=== PATIENT | female | born 1955 | race American Indian/Alaskan Native ===

== ENCOUNTER 2020-05-26 12:00 | Outpatient (CLI) | payer OTHER ==
[2020-05-26] MEDS ORDERED: ALBUTEROL 2.5 MG/3 ML NEBU IH NR (14:00)
[2020-05-26] MEDS ORDERED: ALBUTEROL 2.5 MG/3 ML NEBU IH SCH (14:30)
== END 2020-05-26 12:01 | disposition home or self-care (01) ==
LOC: PF 12:00
PROVIDERS: ATTEND Internal Medicine
DX: J43.9 Emphysema, unspecified (principal); Z02.71 Encounter for disability determination
CPT/HCPCS: 94060; 94640; 94729